=== PATIENT | female | born 1955 | race Caucasian/White ===

== ENCOUNTER 2017-08-27 11:56 | Outpatient (CLI) | payer MEDICAID | END 2017-08-27 23:59 | disposition home or self-care (01) | LOC: D.MAMMO 11:56 | DX: Z12.31 Encounter for screening mammogram for malignant neoplasm of breast (principal) ==

== ENCOUNTER 2017-09-27 08:00 | Outpatient (CLI) | payer MEDICAID | END 2017-09-27 09:00 | disposition home or self-care (01) | LOC: D.MAMMO 08:00 | DX: R92.8 Other abnormal and inconclusive findings on diagnostic imaging of breast (principal) ==

== ENCOUNTER 2019-12-14 23:12 | Emergency (ER) | payer MEDICAID ==
[~2019-12-14] VITALS: Ht 157.5 cm; Wt 84.1 kg
[2019-12-14 23:21] VITALS: Ht 157.5 cm; Wt 84.1 kg
[2019-12-14] MEDS ORDERED: COREG12.5 MG PO (23:22)
[2019-12-14] MEDS ORDERED: OMEPRAZOLE20 M1 PO (23:22)
[2019-12-14] MEDS ORDERED: BAYER CHEWABLE81 MG PO (23:22)
[2019-12-14] MEDS ORDERED: PREDNISONE5 MG PO (23:23)
[2019-12-14] MEDS ORDERED: HYDROXYCHLOROQ200 MG PO (23:23)
[2019-12-14] MEDS ORDERED: METHOTREXATE2.5 MG PO (23:24)
[2019-12-14] MEDS ORDERED: NITROQUICK0.4 MG SL (23:24)
[2019-12-14] MEDS ORDERED: FOLIC ACID1 MG PO (23:24)
[2019-12-14] MEDS ORDERED: LIORESAL 10 MG10 MG PO (23:25)
[2019-12-14] MEDS ORDERED: ULTRAM50 MG PO (23:25)
[2019-12-14] MEDS ORDERED: ACETAMINOPHEN500 M1 PO (23:25)
[2019-12-15 00:13] LABS: BASOPHILS 0.3 % (0-2); EOSINOPHILS 1.1 % (0-7); HEMATOCRIT 35.1 % (36.0-48.0); HEMOGLOBIN 11.3 g/dL (12-16); IMMATURE GRANULOCYTES 0.2 % (0-5); LYMPHOCYTES 8.1 % (15-50); MCH 31.4 pg (26.0-34.0); MCHC 32.2 g/dL (31.0-37.0); MCV 97.5 fL (80.0-100.0); MEAN PLATELET VOLUME 8.6 fL (7.4-10.4); MONOCYTES 11.5 % (2-11); NEUTROPHILS 78.8 % (40-80); PLATELET COUNT 242 10x3/uL (130-400); WBC 10.4 10x3/uL (4.8-10.8)
[2019-12-15 00:18] LABS: CALC OSMOLALITY 268 mosm/kg (275-300); CALCIUM 8.9 mg/dL (8.5-10.1); CARBON DIOXIDE 29.5 mmol/L (21.0-32.0); CHLORIDE - SERUM 100 mmol/L (98-107); CREATININE - SERUM 0.6 mg/dL (0.6-1.3); GLUCOSE 122 mg/dL (74-106); POTASSIUM - SERUM 3.7 mmol/L (3.5-5.1); SODIUM 135 mmol/L (136-145); UREA NITROGEN 8 mg/dL (7-18); eGFR NON AFRICAN AMERICAN > 90 mL/min (90-120)
[2019-12-15 00:24] LABS: ALBUMIN 3.1 g/dL (3.4-5.0); ALKALINE PHOSPHATASE 110 U/L (30-120); ALT (SGPT) 44 U/L (10-68); PROTEIN - SERUM 7.4 g/dL (6.4-8.2)
[2019-12-15 00:26] LABS: LIPASE 39 U/L (73-393)
[2019-12-15 00:32] LABS: BILIRUBIN NEGATIVE (NEGATIVE); KETONE NEGATIVE (NEGATIVE); NITRITE NEGATIVE (NEGATIVE); UROBILINOGEN NORMAL mg/dL (< 2)
[2019-12-15 00:33] LABS: BACTERIA FEW HPF (NONE SEEN); EPITHELIAL CELLS 0-5 /hpf (0-5); WHITE CELLS - URINE 0-5 HPF (0-4)
[2019-12-15] MEDS ORDERED: XOFLUZA40 MG PO (01:37)
[2019-12-15] MEDS ORDERED: PHENERGAN25 M1 PO (01:37)
[2019-12-15 02:20] VITALS: BP 122/78
== END 2019-12-15 02:20 | disposition home or self-care (01) ==
LOC: D.ER 23:12
PROVIDERS: Emergency Medicine
DX: J11.1 Influenza due to unidentified influenza virus with other respiratory manifestations (principal); I10 Essential (primary) hypertension; I25.2 Old myocardial infarction; R11.0 Nausea